=== PATIENT | male | born 1960 | race Two or more races ===

== ENCOUNTER 2023-03-08 09:09 | Day surgery (SDC) | payer MEDICAID ==
[2023-03-06 13:03] LABS: Basophils # (auto) 0.1 10 ^3/uL (0-0.2); Basophils % (auto) 1.3 % (0.0-2.0); Eosinophils # (auto) 0.1 10 ^3/uL (0-0.8); Eosinophils % (auto) 1.9 % (0.0-7.0); Hematocrit 45.7 % (41.0-53.0); Hemoglobin 15.6 g/dL (13.5-17.5); Lymphocytes # (auto) 2.2 10 ^3/uL (0.4-5.4); Lymphocytes % (auto) 28.7 % (10.0-50.0); Mean Corpuscular Hemoglobin 31.6 pg (28.0-32.0); Mean Corpuscular Hgb Conc. 34.2 g/dL (32.0-36.0); Mean Corpuscular Volume 92.3 fL (80.0-100.0); Monocytes # (auto) 0.6 10 ^3/uL (0-1.3); Monocytes % (auto) 7.6 % (0.0-12.0); Neutrophils # (auto) 4.7 10 ^3/uL (1.6-8.6); Neutrophils % (auto) 60.5 % (37.0-80.0); Nucleated Red Blood Cells % 0.2 %; Red Blood Cells 4.95 10^6/uL (4.5-5.90); Red Cell Distribution Width 13.7 % (11.8-14.3); White Blood Cell 7.7 10^3/uL (4.4-10.8)
[2023-03-06 13:12] LABS: INR 0.9 (0.9-1.15); Partial Thromboplastin Time 30.5 sec (24.6-33.4)
[2023-03-06 14:05] LABS: Albumin 3.9 g/dL (3.4-5.0); Calcium 8.4 mg/dL (8.5-10.1)
[2023-03-06 14:08] LABS: BUN/Creatinine Ratio 9.1 (10.0-20.0); Bilirubin, Total 0.5 mg/dL (0.2-1.0); Total Protein 7.6 g/dL (6.4-8.2)
[~2023-03-08] VITALS: Ht 175.3 cm; Wt 74.8 kg
[~2023-03-08 09:09] MED LIST: HYDR-4072 PO; LOSA25TA15 PO
[2023-03-08] MEDS ORDERED: DexAMETHasone SOD PHOS 10MG/1ML VIAL INJ IV ONE (09:10)
[2023-03-08] MEDS ORDERED: ceFAZolin 1GM/50ML 100 ML IV ONE (09:45)
[2023-03-08] MEDS ORDERED: LIDOCAINE W/ EPINEPHRINE 1% 20ML VIAL ONE (11:18)
[2023-03-08] MEDS ORDERED: LIDOCAINE 1% HCL (LOCAL ANESTH.) INJ 20ML MDV ONE (11:19)
[2023-03-08] MEDS ORDERED: MEPERIDINE HCL (50 MG/ML) 1 ML VIAL ONE (11:26)
[2023-03-08] MEDS ORDERED: PROPOFOL 10 MG/ML 20 ML IV ONE (11:26)
[2023-03-08] MEDS ORDERED: fentaNYL CITRATE 100 MCG/2 ML VL ONE (11:26)
[2023-03-08] MEDS ORDERED: GLYCOPYRROLATE 0.2 MG/ML 1ML VIAL ONE (11:26)
[2023-03-08] MEDS ORDERED: ONDANSETRON HCL 4 MG/2 ML VIAL ONE (11:26)
[2023-03-08] MEDS ORDERED: KETOROLAC TROMETH 60MG/2ML VIAL ONE (11:26)
[2023-03-08] MEDS ORDERED: MIDAZOLAM HCL 2MG/2ML 2ml VIAL (1mg/ml) ONE (11:26)
[2023-03-08] MEDS ORDERED: LIDOCAINE HCL 100 MG/5ML (2%) SYRG INJ IV ONE (11:26)
[2023-03-08] MEDS ORDERED: HYDROmorphone HCL 2 MG/ML VL/or syr IV PRN (12:45)
[2023-03-08] MEDS ORDERED: ONDANSETRON HCL 4 MG/2 ML VIAL IV PRN (12:45)
[2023-03-08 13:30] VITALS: BP 122/81
== END 2023-03-08 13:35 | disposition home or self-care (01) ==
LOC: SUR 09:09
PROVIDERS: ATTEND Surgery
DX: K61.0 Anal abscess (principal); I10 Essential (primary) hypertension; F17.200 Nicotine dependence, unspecified, uncomplicated
CPT/HCPCS: 36415; 46050; 80053; 85025; 85610; 85730; 86850; 86900; 86901; J0690; J1100; J1885; J2175; J2250; J2405; J2704; J3010; J2001